=== PATIENT | male | born 1980 ===

== ENCOUNTER → 2022-02-28 | Day surgery (SDC) | payer OTHER ==
[~2022-02-28] VITALS: Ht 185.4 cm; Wt 117.9 kg
[~2022-02-28] MED LIST: ABILIFY5 MG PO; ATARAX25 MG PO; COZAAR25 MG PO; ELIQUIS5 MG PO; KENALOG IN ORABA5 GM TOP; KEPPRA1000 MG PO; LIPITOR40 MG PO; LYRICA300 MG PO; TRAZODONE 50MG50 MG PO; VIMPAT200 MG PO
[2022-02-28 07:30] LABS: BASOPHIL 0.4 % (0-2); EOSINOPHIL 2.1 % (0-5); LYMPHOCYTE 28.1 % (15-48); MCH 28.3 pg (25.0-31.0); MCHC 32.6 g/dL (32.0-36.0); MCV 86.8 fL (78.0-100.0); MONOCYTE 6.2 % (0-12); MPV 10.4 fL (6.0-9.5); NEUTROPHIL 62.9 % (41-80); NRBC 0; PLT 316 K/uL (150-400); WBC 7.1 K/uL (4.0-10.5)
[2022-02-28 07:46] LABS: BUN/CREAT RATIO (CALC) 8.4 RATIO; CREATININE 0.95 mg/dL (0.67-1.17); POTASSIUM 3.6 mmol/L (3.5-5.1)
== END | disposition home or self-care (01) ==
LOC: FAS 01-17 08:45
PROVIDERS: Oral & Maxillofacial Surgery
DX: K02.9 Dental caries, unspecified (principal); K04.7 Periapical abscess without sinus; G40.909 Epilepsy, unspecified, not intractable, without status epilepticus; E66.01 Morbid (severe) obesity due to excess calories; I10 Essential (primary) hypertension; E78.5 Hyperlipidemia, unspecified; Z88.6 Allergy status to analgesic agent; Z88.8 Allergy status to other drugs, medicaments and biological substances; Z79.01 Long term (current) use of anticoagulants; Z79.899 Other long term (current) drug therapy
CPT/HCPCS: D7140; D7210; 36415; 71045; 80048; 85025; J1100; J2250; J2704; J2710; J3010; J7120

== ENCOUNTER → 2022-02-28 | Day surgery (SDC) | payer OTHER | END | disposition home or self-care (01) | LOC: FAS 07:30 | DX: K02.9 Dental caries, unspecified (principal); K04.7 Periapical abscess without sinus; G40.909 Epilepsy, unspecified, not intractable, without status epilepticus; E66.01 Morbid (severe) obesity due to excess calories; Z68.34 Body mass index [BMI] 34.0-34.9, adult | CPT/HCPCS: D7140 ×6; D7210 ×7 ==